=== PATIENT | female | born 1980 | race Caucasian/White ===

== ENCOUNTER 2023-08-03 12:46 | Emergency (ER) | payer SELFPAY ==
[2023-08-03 13:06] VITALS: BP 156/88; PULSE 74; RESP 16; TEMP 36.8; O2SAT 99
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
== END 2023-08-03 13:43 | disposition home or self-care (01) ==
PROVIDERS: Emergency Provider Nurse Practitioner
DX: M77.8 Other enthesopathies, not elsewhere classified (principal); Z85.43 Personal history of malignant neoplasm of ovary; Z85.89 Personal history of malignant neoplasm of other organs and systems
CPT/HCPCS: 99213; G0463

== ENCOUNTER 2024-01-15 10:00 | Emergency (ER) | payer SELFPAY ==
--- NOTE | 2024-01-15 10:05 | ED.EAR ---
HPI - Ear Problem General Chief complaint: Ear Stated complaint: Right Ear Irritation Time Seen by Provider: 01/15/24 10:01 Source: patient Mode of arrival: ambulatory Limitations: no limitations History of Present Illness HPI Narrative: Maggie is a 43-year-old female patient presenting to the clinic today with complaints of right ear pain. She reports she has had nasal congestion runny nose and cough for the past week. States she blew her nose yesterday and felt a sharp stabbing pain in her right ear. Noticed that she did have some clear fluid with attend of pain coming from the ear. Is in a lot of pain at this time. Related Data Allergies Allergy/AdvReac Type Severity Reaction Status Date / Time amitriptyline Allergy Severe Swelling Verified 01/15/24 10:13 Review of Systems Review of Systems: Pertinent positives per HPI. Patient denies any fever, chills, rash, headache, visual changes, dizziness, cough, runny nose, sore throat, shortness of breath, chest pain, palpitations, nausea, vomiting, diarrhea, constipation, abdominal pain, or any urinary issues. PMFSH Comments At the time of my signature, I reviewed and agree with the nursing past medical, surgical, social, and family history. There is no relevant family history pertinent to the patient complaint. Exam Narrative: General: Well-developed, well nourished, in no apparent distress Head: Normocephalic, atraumatic Eyes: Pupils equally round and reactive to light bilaterally, EOM intact, sclera and conjunctive clear, no discharge, lids normal Ears: Left TMs intact and clear, right TM ruptured with bloody drainage in the ear canal, left ear canal clear, no drainage, left grossly hearing normal, right hearing decreased Nose: Nares patent, clear nasal discharge, no inflammation, no sinus tenderness. Mouth: Oropharynx without lesions or masses, good dentition, MMM. Neck: Supple, trachea midline, no enlargement of anterior or posterior cervical nodes, no thyroid masses or goiter palpable. Cardio: Regular rate and rhythm, s1 and s2 normal, no murmur appreciated. Resp: Clear to auscultation bilaterally anteriorly and posteriorly, no rhonchi, rales, wheezing or rubs Course Course Emergency Course: Portions of this record may have been created with voice recognition software. Level of Care: Express Care Visit Vital Signs Vital signs: Vital signs reviewed Medical Decision Making MDM Narrative Medical decision making narrative: At the time of visit patient is tearful and having acute pain. Patient appears to be nontoxic. Plan: I suspect patient had right otitis media with rupture. Prescription for amoxicillin and ofloxacin ear drops was sent to the pharmacy. Will also send in prescription for Diflucan as patient gets a vaginal yeast infection when taking antibiotics. Supportive measures were discussed with the patient and they voiced understanding discharge instructions and agrees to treatment plan. Return precautions reviewed Differential Diagnosis Differential Diagnosis: Otitis media, otitis externa, eustachian tube dysfunction, eardrum rupture, cerumen impaction, serous otitis, upper respiratory infection Discharge Plan Discharge Clinical Impression: Eardrum rupture, right Otitis media Qualifiers: Otitis media type: suppurative Chronicity: acute Laterality: right Recurrence: non-recurrent Spontaneous tympanic membrane rupture: with spontaneous rupture Qualified Code(s): H66.011 - Acute suppurative otitis media with spontaneous rupture of ear drum, right ear Patient Disposition: Home, Self-Care Condition: Stable Instructions: Antibiotic Form, Ruptured Eardrum (ED), Ear Infection (ED) Additional Instructions: Do not submerge head under water Instill ear drops as prescribed May take Tylenol/Motrin as needed for pain-take these together 1 g of Tylenol and 600 mg of ibuprofen every 8 hours May apply warm compress to the ear to hel
[2024-01-15 10:08] VITALS: BP 160/106; PULSE 98; RESP 20; TEMP 36.1; O2SAT 98
== END 2024-01-15 10:20 | disposition home or self-care (01) ==
PROVIDERS: Emergency Provider Nurse Practitioner Family
DX: H66.011 Acute suppurative otitis media with spontaneous rupture of ear drum, right ear (principal); Z85.43 Personal history of malignant neoplasm of ovary
CPT/HCPCS: 99213; G0463

== ENCOUNTER 2024-05-30 15:07 | Emergency (ER) | payer SELFPAY ==
--- NOTE | 2024-05-30 15:13 | ED.FEMALEGU ---
HPI - Female Genitourinary General Chief complaint: Urogenital-Female Stated complaint: UTI Time Seen by Provider: 05/30/24 15:30 Source: patient Mode of arrival: ambulatory Limitations: no limitations History of Present Illness HPI Narrative: Laurita is a 43-year-old female patient presenting to the clinic today with complaints of possible urinary tract infection. She reports over the last day or 2 she has had burning with urination and nausea. Denies any fevers, chills, body aches, or back pain. She has taken azo for her symptoms. She denies any vaginal discharge or concern for sexually transmitted infections Related Data Allergies Allergy/AdvReac Type Severity Reaction Status Date / Time amitriptyline Allergy Severe Swelling Verified 05/30/24 15:08 Review of Systems Review of Systems: Pertinent positives per HPI. Patient denies any fever, chills, rash, headache, visual changes, dizziness, cough, runny nose, sore throat, shortness of breath, chest pain, palpitations, nausea, vomiting, diarrhea, constipation, abdominal pain PMFSH Comments At the time of my signature, I reviewed and agree with the nursing past medical, surgical, social, and family history. There is no relevant family history pertinent to the patient complaint. Exam Narrative: General: Well-developed, obese, in no apparent distress. Head: Normocephalic, atraumatic. Cardio: Regular rate and rhythm, s1 and s2 normal, no murmur appreciated. Resp: Clear to auscultation bilaterally, no rhonchi, rales, wheezing or rubs. Abdomen: Soft, pliable, bowel sounds present in all quadrants, non-tender to palpation, no organomegly, positive right CVAT tenderness. Course Course Emergency Course: Portions of this record may have been created with voice recognition software. Level of Care: Express Care Visit Vital Signs Vital signs: Vital signs reviewed MDM - Female Genitourinary MDM Narrative Medical decision making narrative: At the time of visit patient is resting comfortably on the exam table. Patient appears to be nontoxic. Labs: Unable to do a urine dip due to patient taking azo. We will send urine for culture. Will go ahead and treat the patient with Bactrim DS. Patient is reporting some nausea so prescription for promethazine was given as she reports that Zofran causes her to have a headache. Also requesting Diflucan while taking the antibiotic as she gets yeast infections with antibiotics. Supportive measures were discussed with the patient and they voiced understanding discharge instructions and agrees to treatment plan. Return precautions reviewed Differential Diagnosis Differential diagnosis: Likely urinary tract infection and cystitis Discharge Plan Discharge Clinical Impression: Urinary tract infection Qualifiers: Urinary tract infection type: acute cystitis Hematuria presence: without hematuria Qualified Code(s): N30.00 - Acute cystitis without hematuria Patient Disposition: Home, Self-Care Condition: Stable Instructions: Antibiotic Form, Urinary Tract Infection in Women (ED) Additional Instructions: We will send urine for culture Take Bactrim as prescribed Take promethazine as prescribed Take Diflucan as prescribed Increase fluids and stay well hydrated Wipe front to back. May use wet wipes. Avoid tub baths If sexually active- pee before and after intercourse. Wear cotton panties Avoid tight clothing up against the genitals Follow up with your PCP in 1 week if symptoms persist. Prescriptions: New sulfamethoxazole-trimethoprim [Bactrim DS] 800-160 mg tablet 1 tablet PO Q12H 7 Days Qty: 14 0RF fluconazole 150 mg tablet 150 mg PO ONCE Qty: 2 0RF Rx Instructions: as a single dose. May repeat in 72 hours if needed. promethazine 25 mg tablet 25 mg PO TID PRN (Reason: nausea and vomiting) 3 Days Qty: 10 0RF Follow-up/Referrals: PHYSICIAN,OPERATIONS ASSOCIATE [Primary Care Provider] -
[2024-05-30 15:27] VITALS: BP 172/91; PULSE 63; RESP 18; TEMP 36.8; O2SAT 98
== END 2024-05-30 15:54 | disposition home or self-care (01) ==
PROVIDERS: Emergency Provider Nurse Practitioner Family
DX: N30.00 Acute cystitis without hematuria (principal); Z85.43 Personal history of malignant neoplasm of ovary
CPT/HCPCS: 87086; 99213; G0463

== ENCOUNTER 2024-07-11 11:18 | Emergency (ER) | payer SELFPAY ==
[2024-07-11 11:22] VITALS: BP 117/65; PULSE 59; RESP 16; TEMP 36.8; O2SAT 97
--- NOTE | 2024-07-11 11:23 | ED_ITS ---
HPI - General Adult General Chief complaint: Skin/Abscess/Foreign Body Stated complaint: Left Side Facial Swelling Time Seen by Provider: 07/11/24 11:30 Source: patient, RN notes reviewed and old records reviewed Mode of arrival: ambulatory Limitations: no limitations History of Present Illness HPI narrative: 44-year-old female presents to the [facility] with left-sided facial swelling. Patient states that started in her cheekAnd below her eye a day or 2 ago. Has very poor dentition. Has a history of abscesses. Has progressed into the left side of the face. No facial droop noted. Able to raise eyebrows. No significant erythema or increased warmth. Related Data Allergies Allergy/AdvReac Type Severity Reaction Status Date / Time amitriptyline Allergy Severe Swelling Verified 05/30/24 15:08 Review of Systems Review of Systems: All systems reviewed & are unremarkable except as noted in HPI and below Constitutional: Constitutional: Reports no additional constitutional complaints ENT: Reports as per HPI Cardiovascular: Cardiovascular: Reports no additional cardiovascular complaints, Denies chest pain and Denies dyspnea Respiratory: Respiratory: Reports no additional respiratory complaints, Denies chest congestion, Denies cough and Denies dyspnea Gastrointestinal: Gastrointestinal: Reports no additional gastrointestinal complaints, Denies abdominal pain, Denies nausea and Denies vomiting Musculoskeletal: Musculoskeletal: Reports no additional musculoskeletal complaints Integumentary/Breasts: Skin/Breast: Reports system reviewed and no additional complaints, except as docu PMFSH Comments At the time of my signature, I reviewed and agree with the nursing past medical, surgical, social, and family history. There is no relevant family history pertinent to the patient complaint. Exam Const: General: cooperative, healthy appearing, no acute distress, well developed, alert, uncomfortable and well nourished Nutritional Appearance: well nourished Orientation/consciousness: patient oriented x3 Limitations: no limitations HENMT: Head: normal to inspection Ears: hearing grossly normal bilaterally, external ears normal, TM's normal bilaterally, EAC's normal, mastoids normal and no periauricular adenopathy Face/Nose/Sinus: Normal external nose present, normal facial exam and face symmetric Face and sinus: normal facial exam, no abrasions, no crepitus, no ecchymosis, no erythema, no fluctuance, no lacerations, sinus tenderness (Left side) and Facial tenderness on exam of face and sinuses (Left) Throat: posterior oropharynx normal, uvula midline and no uvular edema Eyes: General: appearance normal, both eyes and all related structures Alignment and Position: alignment normal Periorbital: periorbital findings normal Neck: Neck: normal visual inspection, full ROM, no lymphadenopathy and no meningeal signs Chest: Chest palpation & inspection: normal inspection of the chest Resp: Effort & Inspection: normal respiratory effort and able to speak in complete sentences Auscultation: clear to auscultation bilaterally, no crackles, no rales, no rhonchi and no wheezes Cardio: Rate: regular rate Skin: General skin exam: normal color and no rashes or lesions noted Lesions: no lesions Rashes: no rashes Wounds: no wounds Neuro: General: patient oriented x3, gait normal, tone normal, moves all extremities and no meningeal signs Cognition (Neuro): normal cognition Speech: normal speech Gait exam (Neuro): Normal gait present Extrem: General: normal to inspection, full ROM, capillary refill normal and normal gait Psych: Appearance: grossly normal and well kempt Mental Status: mental status grossly normal Speech and movement: Normal speech and movement present and Clear speech present Affect: normal affect Attitude: cooperative Course Course Level of Care: Express Care Visit Vital Signs Vital signs: Vital Signs Temperature 98.3 F 07/11/24 11:22 Pulse Rate 59 L 07/11/24 11:22 Respiratory Rate 16 07/11/24 11:22 Blood Pressure 117/65 07/11/24 11:22 Pulse Oximetry 97 07/11/24 11:22 Oxygen Delivery Room Air 07/11/24 11:22 Temperature 98.3 F 07/11/24 11:22 Pulse Rate 59 L 07/11/24 11:22 Respiratory Rate 16 07/11/24 11:22 Blood Pressure 117/65 07/11/24 11:22 Pulse Oximetry 97 07/11/24 11:22 Oxygen Delivery Room Air 07/11/24 11:22 Reviewed Medical Decision Making MDM Narrative Medical decision making narrative: Patient sitting comfortably in exam room. Nontoxic, vitals stable. Patient in no acute distress Patient presents for left-sided facial swelling. Discussed with patient concerns for sinus abscess, dental abscess in the upper portion due to poor dentition. No swelling of the lip or tongue. Everything is the left cheek, under the eye and lateral cheek. Discussed a transfer of patient to the ER for further evaluation, possible CT scan and blood work which she declined at this time. Wants to try outpatient oral antibiotics. Discussed applying ice. Continue Motrin and Tylenol. Discharge instructions reviewed with patient, as well as provided in writing per nursing staff. The instructions also include specific and strict return/GO TO THE ER as well as f/u information. All questions have been answered, and the patient deny any further questions with discharge and discharge plan. Some parts of this dictation were generated by voice recognition software and may contain typographical and/or grammatical inaccuracies. Medical Records Medical records reviewed: Yes I reviewed the external patient's medical records. Vital Signs Vital Signs: Vital Signs Temperature 98.3 F 07/11/24 11:22 Pulse Rate 59 L 07/11/24 11:22 Respiratory Rate 16 07/11/24 11:22 Blood Pressure 117/65 07/11/24 11:22 Pulse Oximetry 97 07/11/24 11:22 Oxygen Delivery Room Air 07/11/24 11:22 Temperature 98.3 F 07/11/24 11:22 Pulse Rate 59 L 07/11/24 11:22 Respiratory Rate 16 07/11/24 11:22 Blood Pressure 117/65 07/11/24 11:22 Pulse Oximetry 97 07/11/24 11:22 Oxygen Delivery Room Air 07/11/24 11:22 Reviewed Lab Data Lab results reviewed: Yes I reviewed the patient's lab results. Labs: Reviewed Critical Care Time Critical Care Time Critical Care Time: No Discharge Plan Discharge Clinical Impression: Left-sided face pain, Swelling of left side of face Patient Disposition: Home, Self-Care Condition: Stable Instructions: Antibiotic Form, Abscess (ED) Additional Instructions: Apply ice to the area. Continue to taking ibuprofen and Tylenol. Take ant ibiotic as prescribed. Follow-up with primary care For worsening symptoms please go directly to the emergency room Patient Language: Croatian Prescriptions: New amoxicillin-pot clavulanate 875-125 mg tablet 1 tablet PO Q12H Qty: 20 0RF No Action fluconazole 150 mg tablet 150 mg PO ONCE Qty: 2 0RF Rx Instructions: as a single dose. May repeat in 72 hours if needed. promethazine 25 mg tablet 25 mg PO TID PRN (Reason: nausea and vomiting) 3 Days Qty: 10 0RF Follow-up/Referrals: PHYSICIAN,TILE SORTER [Primary Care Provider] - Stand Alone Forms: Work/School Release IP Time of Disposition: 11:38
== END 2024-07-11 11:47 | disposition home or self-care (01) ==
PROVIDERS: Emergency Provider Nurse Practitioner
DX: R22.0 Localized swelling, mass and lump, head (principal); R51.9 Headache, unspecified
CPT/HCPCS: 99213; G0463

== ENCOUNTER 2024-07-26 16:53 | Emergency (ER) | payer SELFPAY ==
[2024-07-26 17:01] VITALS: BP 130/88; PULSE 86; RESP 16; TEMP 35.7; O2SAT 99
--- NOTE | 2024-07-26 17:19 | ED_ITS ---
HPI - General Adult General Chief complaint: Unspecified Stated complaint: Left Side Facial Swelling Time Seen by Provider: 07/26/24 17:00 Source: patient Mode of arrival: ambulatory Limitations: no limitations History of Present Illness HPI narrative: Patient is a 44-year-old female who presents with the same symptoms as prior visit. Visit was 07/11 and was given 10 days of Augmentin. Patient states symptoms return 2 days after finishing antibiotics. Patient has not followed with a PCP to establish care and be seen for further evaluation. Patient was offered to be transferred is ED last time for lab work and further imaging. Patient declined. Patient also has not seen a dentist since last visit. States symptoms are not quite as severe as last time. Reports congestion started Thursday leading to symptoms currently. Patient has poor dentition. Denies any fever, chills, nausea, vomiting, diarrhea, sharp shooting pain in face or changes in vision. Related Data Home Medications Medication Instructions Recorded Confirmed No Home Medications 07/26/24 07/26/24 Allergies Allergy/AdvReac Type Severity Reaction Status Date / Time amitriptyline Allergy Severe Swelling Verified 05/30/24 15:08 Review of Systems Review of Systems: All systems reviewed & are unremarkable except as noted in HPI and below Constitutional: Constitutional: Denies body ache(s), Denies chills, Denies fatigue, Denies fever(s), Denies headache(s), Denies malaise and Denies weakness Eyes: Eyes: Denies blurry vision, Denies irritation and Denies loss of vision ENT: Denies otalgia, Denies headache(s), Reports nasal congestion, Denies nasal discharge, Reports sinus pain, Reports sinus pressure and Denies sore throat Cardiovascular: Cardiovascular: Denies chest pain, Denies irregular heart rhythm and Denies dyspnea Respiratory: Respiratory: Denies dyspnea Gastrointestinal: Gastrointestinal: Denies abdominal pain, Denies melena, Denies hematochezia, Denies diarrhea, Denies nausea and Denies vomiting Musculoskeletal: Musculoskeletal: Denies back pain, Denies myalgias and Denies arthralgias Integumentary/Breasts: Skin/Breast: Denies pruritus and Denies rash Neurologic: Denies headache(s), Denies loss of vision and Denies weakness Psychiatric: Psychiatric: Reports no additional psychiatric complaints Endocrine: Endocrine: Denies fatigue PMFSH Comments At time of signature, agree with nursing past medical, surgical, social and family history. There is no relevant family history pertinent to the presenting complaint. Exam Const: General: cooperative, healthy appearing, comfortable, no acute distress and well nourished Nutritional Appearance: well nourished Orientation/consciousness: patient oriented x3 Limitations: no limitations HENMT: Head: normal to inspection, normocephalic and atraumatic Ears: hearing grossly normal bilaterally and external ears normal Face/Nose/Sinus: Normal external nose present, normal facial exam, face symmetric and Facial tenderness on exam of face and sinuses (Left maxillary sinuses) Face and sinus: erythema on the left maxilla, edema on the left maxilla and Facial tenderness on exam of face and sinuses on the left maxilla Mouth: Yes Normal oral and palatal mucosa present, Yes lip normal and Yes tongue normal Teeth and gingiva: abnormal tooth and associated gingiva upper left first bicuspid enamel fractured, caries and poor dentition Eyes: General: appearance normal, both eyes and all related structures Alignment and Position: alignment normal and position normal Periorbital: periorbital findings normal Eyelids: eyelids normal Pupils: Equal, round and reactive pupils present EOM: EOMs intact bilaterally Neck: Neck: normal visual inspection, full ROM and supple Chest: Chest palpation & inspection: normal inspection of the chest Resp: Effort & Inspection: normal respiratory effort and able to speak in complete sentences Auscultation: clear to auscultation bilaterally Cardio: Rate: regular rate Rhythm: regular rhythm Heart sounds: S1 normal heart sound present and S2 normal heart sound present GI: Inspection: normal to inspection Skin: General skin exam: normal color and no rashes or lesions noted Neuro: General: patient oriented x3 and moves all extremities Cranial nerves: Yes Equal, round and reactive pupils present Speech: normal speech Gait exam (Neuro): Normal gait present Extrem: General: normal to inspection, full ROM and no edema Psych: Appearance: grossly normal and well kempt Mental Status: mental status grossly normal Speech and movement: Normal speech and movement present Affect: normal affect Attitude: cooperative Thought process: Normal thought process present Course Course Emergency Course: Patient is aware of diagnosis, understands and agrees to treatment plan. Anticipatory guidance given. Patient agrees to follow-up as directed and is aware of reasons to seek care at the emergency department. Portions of this record may have been created with voice recognition software Level of Care: Express Care Visit Vital Signs Vital signs: Vital Signs Temperature 35.7 C L 07/26/24 17:01 Pulse Rate 86 07/26/24 17:01 Respiratory Rate 16 07/26/24 17:01 Blood Pressure 130/88 07/26/24 17:01 Pulse Oximetry 99 07/26/24 17:01 Oxygen Delivery Room Air 07/26/24 17:01 Temperature 35.7 C L 07/26/24 17:01 Pulse Rate 86 07/26/24 17:01 Respiratory Rate 16 07/26/24 17:01 Blood Pressure 130/88 07/26/24 17:01 Pulse Oximetry 99 07/26/24 17:01 Oxygen Delivery Room Air 07/26/24 17:01 Reviewed Medical Decision Making MDM Narrative Medical decision making narrative: Patient sitting comfortably in exam room. Nontoxic, vitals stable. Patient in no acute distress Discussed need for transfer to emergency department for further imaging and lab work. Patient states she has trauma at home and is unable to go tonight. Patient is agreeance that she needs further workup and states she will go to the emergency department tomorrow. Patient states she is in pain and needs some relief which is mode of the reasons she is agreeable to go be seen at higher level of care. Patient does repeat back that if symptoms worsen she will go tonight and not wait any longer. Patient does decline transfer at this time. Denies any fever, bitter taste in mouth, facial trauma, changes in vision, numbness, tingling or weakness in face. Discharge instructions reviewed with patient, as well as provided in writing per nursing staff. The instructions also include specific and strict return/GO TO THE ER as well as f/u information. All questions have been answered, and the patient deny any further questions with discharge and discharge plan. Differential diagnosis considered: Mercer virus, strep pharyngitis, allergic rhinitis, upper respiratory tract infection, sinusitis, rhinosinusitis, nasopharyngitis. viral pharyngitis, otitis media, otitis externa, otitis effusion, foreign body, cerumen impaction, viral syndrome, and influenza.? Exam findings show no acute concerns or changes; patient is non-toxic appearing and is in no distress.? Patient is appropriate for outpatient treatment and follow- up.? Medical Records Medical records reviewed: Yes I reviewed the external patient's medical records. Vital Signs Vital Signs: Vital Signs Temperature 35.7 C L 07/26/24 17:01 Pulse Rate 86 07/26/24 17:01 Respiratory Rate 16 07/26/24 17:01 Blood Pressure 130/88 07/26/24 17:01 Pulse Oximetry 99 07/26/24 17:01 Oxygen Delivery Room Air 07/26/24 17:01 Temperature 35.7 C L 07/26/24 17:01 Pulse Rate 86 07/26/24 17:01 Respiratory Rate 16 07/26/24 17:01 Blood Pressure 130/88 07/26/24 17:01 Pulse Oximetry 99 07/26/24 17:01 Oxygen Delivery Room Air 07/26/24 17:01 Reviewed Discharge Plan Discharge Clinical Impression: Swelling of left side of face Patient Disposition: Home, Self-Care Condition: Stable Instructions: Sinusitis (ED) Additional Instructions: Go to the emergency department tomorrow for further workup and imaging as discussed. For pain, you may take: Tylenol 650-1000mg by mouth every 4-6 hours. Do not exceed 4000mg in 24 hours. Advil (Ibuprofen) 600 mg by mouth every 6 hours. Do not exceed 2400mg in 24 hours. 8 AM: Tylenol 11 AM: Ibuprofen 2 PM: Tylenol 5 PM: Ibuprofen 8 PM: Tylenol 11 PM: Ibuprofen 2 AM: Tylenol 5 AM: Ibuprofen Symptomatic treatment of a sinus infection aims to relieve symptoms. These treatments do not shorten the duration of illness. Nonprescription pain medications, such as acetaminophen (eg, Tylenol) or ibuprofen (eg, Motrin, Advil), are recommended for pain. Flushing the nose and sinuses with a saline solution several times per day has been proven to decrease pain associated with congestion and shorten the duration of symptoms. Nasal steroids (such as Flonase, 2 sprays in each nostril daily) can help to reduce swelling inside the nose, usually within two to three days. These drugs have few side effects and relieve symptoms in most people. Oral decongestants (pseudoephedrine and phenylephrine) may be helpful if you have associated symptoms of ear pain or fullness. Nasal decongestant sprays, including oxymetazoline (Afrin) and phenylephrine (El-Synephrine), can be used to temporarily treat congestion. However, these sprays should not be used for more than two to three days due to the risk of rebound congestion (when the nose becomes congested constantly unless the medication is used repeatedly), possible addiction, and long-term consequences of frequent use, including persistent nasal dryness and crusting, which is very difficult to treat once it has developed. Medications to thin secretions (such as guaifenesin) may help to clear mucus. If you are having a hard time finding a physician please call our [facility] group liaison at [phone]. Prescriptions: No Action No Home Medications Follow-up/Referrals: PHYSICIAN,[employer] SAL[employer] MANAGER [Primary Care Provider] - Stand Alone Forms: Work/School Release IP Time of Disposition: 17:53
== END 2024-07-26 18:00 | disposition home or self-care (01) ==
PROVIDERS: Emergency Provider Nurse Practitioner Family
DX: R22.0 Localized swelling, mass and lump, head (principal); Z85.43 Personal history of malignant neoplasm of ovary
CPT/HCPCS: 99211; G0463

== ENCOUNTER 2024-07-27 11:50 | Emergency (ER) | payer SELFPAY ==
[2024-07-27 11:53] VITALS: BP 131/73; PULSE 67; RESP 16; TEMP 36.4; O2SAT 100
[2024-07-27] MEDS: oxyCODONE/ACETAMINOPHEN (*CRX) 5-325 MG TABLET 1 TABLET PO (12:56)
[2024-07-27] MEDS: dexAMETHasone 10 MG/10 ML INTENSOL CONC (*BKC) PO (12:57)
--- NOTE | 2024-07-27 13:17 | ED_ITS ---
HPI - Skin/Abscess/Foreign Bdy General Chief complaint: Skin/Abscess/Foreign Body Stated complaint: L sided facial swelling Time Seen by Provider: 07/27/24 11:58 History of Present Illness HPI narrative: this is a 44-year-old female, seen an urgent care 2 weeks ago for left-sided facial swelling and pain, that improved with Augmentin. She states the past 2 days after finishing the antibiotic her pain and swelling has returned. She denies loss of strength/ sensation, change/loss of vision/ hearing, pain with eye movement, difficulty breathing, difficulty swallowing or throat swelling. She has no other complaints at this time. Related Data Allergies Allergy/AdvReac Type Severity Reaction Status Date / Time amitriptyline Allergy Severe Swelling Verified 05/30/24 15:08 Review of Systems Review of Systems: All systems reviewed & are unremarkable except as noted in HPI and below PMFSH Past Medical History Medical History No significant past medical history Surgical History Surgical History No significant past surgical history Social History Social History Smoking status: Current every day smoker Alcohol intake: current Substance use: never Exam Narrative: GENERAL: Well-developed, well-nourished, and in no acute distress. HEAD: Normocephalic, atraumatic. EYES: PERRLA and EOMI. No noted proptosis ENT: Left maxillary facial swelling and tenderness to palpation. There is severe tooth decay and periapical swelling erythema at the bases of teeth 12, 13 and 14 consistent with dental abscess.Nares clear, no rhinorrhea or epistaxis. Mucous membranes moist. Oropharynx without tonsillar hypertrophy exudate or other lesions. NECK: Supple. No adenopathy or masses. CHEST: Clear to auscultation. No respiratory distress. No wheezes rales or rhonchi HEART: Regular rate and rhythm. No murmur heard. Normal peripheral pulses. EXTREMITIES: Normal range of motion. No edema. SKIN: Warm, dry, no rash. NEURO: Alert and oriented x3. No focal deficit. Moving all 4 limbs spontaneously PSYCH: Normal mood and affect. Course Course Emergency Course: 13:15 - The patient's exam appears consistent with dental abscess. I suspect antibiotic failure. Will treat with dose of steroids and switched to clindamycin with recommendation for primary care and dental follow-up. I discussed the findings and recommendations with The patient. Discussed return and emergency precautions including signs/symptoms of airway compromise deep space neck infection. The patient voiced understanding and agreement with the plan. All questions answered to her satisfaction. Vital Signs Vital signs: Vital Signs Temperature 97.6 F 07/27/24 11:53 Pulse Rate 67 07/27/24 11:53 Respiratory Rate 16 07/27/24 11:53 Blood Pressure 131/73 07/27/24 11:53 Pulse Oximetry 100 07/27/24 11:53 Temperature 97.2 F L 07/27/24 13:25 Pulse Rate 53 L 07/27/24 13:25 Respiratory Rate 16 07/27/24 13:25 Blood Pressure 150/82 H 07/27/24 13:25 Pulse Oximetry 97 07/27/24 13:25 MDM - Skin/Abscess/Foreign Bdy MDM Narrative Medical decision making narrative: plan: Pain control, oral steroids, oral antibiotics, primary care and dental follow-up Differential Diagnosis Differential diagnosis: Likely other ( dental abscess, dental caries, antibiotic failure, sinusitis, other) Discharge Plan Discharge Clinical Impression: Abscess, dental, Acute facial pain Patient Disposition: Home, Self-Care Condition: Stable Instructions: Antibiotic Form, Dental Abscess (ED) Additional Instructions: You were seen in the emergency department. your exam is consistent with a dental abscess that has failed initial antibiotic regimen. Your given a dose of steroids in the emergency department. I recommend clindamycin for 7 days beginning today as well as follow-up with a dentist. If you develop difficulty breathing, difficulty swallowing, weakness/numbness, change/loss of v ision/hearing, or if you have other emergent concerns for life, limb, or eyesight, return to the emergency department. Patient Language: Hungarian Prescriptions: New clindamycin HCl 150 mg capsule 450 mg PO Q8H 7 Days Qty: 63 0RF naproxen 500 mg tablet 500 mg PO BID PRN (Reason: pain) 5 Days Qty: 10 0RF fluconazole 150 mg tablet 150 mg PO ONCE Qty: 1 0RF Follow-up/Referrals: Kendrick Brewster MD [Physician] - 2 Weeks UNKNOWN,DOCTOR [Primary Care Provider] - Time of Disposition: 13:19
[2024-07-27 13:25] VITALS: BP 150/82; PULSE 53; RESP 16; TEMP 36.2; O2SAT 97
== END 2024-07-27 13:27 | disposition home or self-care (01) ==
PROVIDERS: Emergency Provider Preventive Medicine Aerospace Medicine
DX: K04.7 Periapical abscess without sinus (principal); R51.9 Headache, unspecified; F17.200 Nicotine dependence, unspecified, uncomplicated
CPT/HCPCS: 99283; A9270; J8540